=== PATIENT | male | born 1995 | race Two or more races ===

== ENCOUNTER 2025-01-16 14:33 | Emergency (ER) | payer MEDICAID, OTHER ==
[~2025-01-16] VITALS: Ht 165.1 cm; Wt 132.8 kg
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
--- NOTE | 2025-01-16 16:17 | DVH ---
CLINICAL INDICATION: POST LIFTING PAIN TECHNIQUE: 3 radiographic views of the right shoulder were obtained. Comparison: None FINDINGS/IMPRESSION: No fracture dislocation. If symptoms persist consider MRI to exclude rotator cuff tear.
--- NOTE | 2025-01-16 16:34 | DVH ---
EXAM: CT LS SPINE WO CONTRAST INDICATION: low back pain to left low leg TECHNIQUE: Axial images of the lumbar spine have been obtained along with coronal and sagittal reform atted images. CT scans at this facility use dose modulation, iterative reconstruction, and/or weight based dosing when appropriate to reduce radiation dose to as low as reasonably achievable. COMPARISON: None FINDINGS: ANATOMY: Five lumbar-type vertebral bodies are present. The most inferior well-formed disc space will be referred to as L5-S1 for purposes of numbering in this report. Suspected congenitally short pedic les in the spine VERTEBRAL BODIES: The vertebral bodies are normal in height and alignment. Schmorl's node of the supe rior endplate of T12 SPINAL CANAL: No spinal canal narrowing. INTERVERTEBRAL DISCS: Disc bulge with at least 2 mm posterior extension at L4-5. FACETS: Mild facet arthropathy at L5-S1. Subsequent suspected mild bilateral S1 foraminal narrowing OTHER: None. IMPRESSION: 1. No CT evidence of an acute fracture. 2. Disc bulge with at least 2 mm posterior extension at L4- 3. Mild facet arthropathy at L5-S
[2025-01-16] MEDS: KETOROLAC TROMETH 60MG/2ML VIAL IM ONE (17:04)
[2025-01-16] MEDS ORDERED: TRAM-626 PO (17:09)
[2025-01-16] MEDS ORDERED: GABA-1250 PO (17:09)
[2025-01-16 17:15] VITALS: BP 133/97; PULSE 91; RESP 16; TEMP 98.1; O2SAT 98
== END 2025-01-16 17:17 | disposition home or self-care (01) ==
LOC: ER 14:33
DX: S46.911A Strain of unspecified muscle, fascia and tendon at shoulder and upper arm level, right arm, initial encounter (principal); M51.26 Other intervertebral disc displacement, lumbar region; M54.16 Radiculopathy, lumbar region; Z79.899 Other long term (current) drug therapy; X50.9XXA Other and unspecified overexertion or strenuous movements or postures, initial encounter; Y93.89 Activity, other specified; Y92.89 Other specified places as the place of occurrence of the external cause; Y99.0 Civilian activity done for income or pay
CPT/HCPCS: 72131; 73030; 96372; 99285; J1885

== ENCOUNTER 2025-02-16 09:06 | Emergency (ER) | payer MEDICAID, OTHER ==
[~2025-02-16] VITALS: Ht 165.1 cm; Wt 131.7 kg
[~2025-02-16 09:06] MED LIST: GABA-1250 PO; TRAM-626 PO
[2025-02-16 09:18] VITALS: BP 135/79; PULSE 82; RESP 16; TEMP 98.1; O2SAT 97
[2025-02-16] MEDS ORDERED: METH-1181 PO (10:27)
[2025-02-16] MEDS ORDERED: NAPR-746 PO (10:27)
--- NOTE | 2025-02-16 10:27 | ED.PDOC ---
Back pain HPI HPI Comments 29-year-old male presents to the ER with a prior MHx of herniated disc, bulging desk in the chief complaint of back pain. Patient notes that the reason from having lower back pain is due from a forklift incident six years ago. Pain rated as moderate OTC medications help temporarily Denies history of chronic steroid use or history of osteoporosis Denies history of cancer Denies fevers chills night sweats nausea vomiting unintentional weight loss Denies abdominal tearing pain Denies syncope Denies urinary changes or urinary incontinence Denies numbness tingling of the groin her inner thigh Denies previous back procedures or surgeries Chief Complaint: Back Pain Time Seen by MD: 09:15 Reviewed Notes: Nurses Notes, Medications, Allergies Allergies: Coded Allergies: NO KNOWN ALLERGIES (Unverified , 01/16/25) Home Meds Active Scripts Methocarbamol (Methocarbamol) 500 Mg Tab, 500 MG PO Q8HP PRN for 10 Days, #30 TAB 0 Refills Prov:GABE HERNANDEZ NP 02/16/25 Naproxen (Naproxen) 500 Mg Tab, 500 MG PO BIDPC for 10 Days, #20 TAB 0 Refills Prov:GABE HERNANDEZ NP 02/16/25 Tramadol HCl (Tramadol HCl) 50 Mg Tab, 50 MG PO TID, #20 TAB Prov:KOKI LUJAN 01/16/25 Gabapentin (Gabapentin) 300 Mg Cap, 300 MG PO BID, #30 CAP Prov:KOKI LUJAN 01/16/25 Information Source: Patient Mode of Arrival: Ambulatory Timing: Came on: Gradually Duration: Since onset Severity: Moderate Prehospital treatment: None Quality: Aching Onset: Spontaneous Circumstance: Work Related History of: Chronic Back Pain Associated signs and symptoms: None Past Medical History Past Medical History (Other): Chronic back pain due from having herniated disc and bulging disc Surgical History: Denies all surgeries Family History Family History: Reviewed,noncontributory to illness, Unknown Social History Smoker: Non-Smoker Alcohol: Denies ETOH Use Drugs: Denies Drug Use Lives In: Home Constitutional: denies: chills, diaphoresis, fatigue, fever, malaise, sweats, weakness, others EENTM: denies: blurred vision, double vision, ear bleeding, ear discharge, ear drainage, ear pain, ear ringing, eye pain, eye redness, hearing loss, mouth pain, mouth swelling, nasal discharge, nose bleeding, nose congestion, nose pain, photophobia, tearing, throat pain, throat swelling, voice changes, others Respiratory: denies: cough, hemoptysis, orthopnea, SOB at rest, shortness of breath, SOB with excertion, stridor, wheezing, others Cardiovascular: denies: chest pain, dizzy spells, diaphoresis, Dyspnea on exertion, edema, irregular heart beat, left arm pain, lightheadedness, palpitations, PND, syncope, others Gastrointestinal: denies: abdomen distended, abdominal pain, blood streaked bowels, constipated, diarrhea, dysphagia, difficulty swallowing, hematemesis, melena, nausea, poor appetite, poor fluid intake, rectal bleeding, rectal pain, vomiting, others Genitourinary: denies: burning, dysuria, flank pain, frequency, hematuria, incontinence, penile discharge, penile sore, pain, testicle pain, testicle swelling, urgency, others Neurological: reports: numbness; denies: dizziness, fainting, headache, left sided numbness, left sided weakness, paresthesia, pre-existing deficit, right sided numbness, right sided weakness, seizure, speech problems, tingling, tremors, weakness, others Musculoskeletal: reports: back pain; denies: gout, joint pain, joint swelling, muscle pain, muscle stiffness, neck pain, others Integumetry: denies: bruises, change in color, change in hair/nails, dryness, laceration, lesions, lumps, rash, wounds, others Allergic/Immunocompromised: denies: Difficulty Healing, Frequent Infections, Hives, Itching, others Hematologic/Lymphatic: denies: anemia, blood clots, easy bleeding, easy bruising, swollen glands, others Endocrine: denies: excessive hunger, excessive sweating, excessive thirst, excessive urination, flushing, intolerance to cold, intolerance to heat, une xplained weight gain, unexplained weight loss, others Psychiatric: denies: anxiety, bipolar disorder, depression, hopeless, panic disorder, schizophrenia, sleepless, suicidal, others All Other Systems: Reviewed and Negative Physical Exam General Appearance: No Apparent Distress, Normal HEENT: Normal ENT Inspection, Pharynx Normal, TMs Normal Neck: Full Range of Motion, Non-Tender, Normal, Normal Inspection Respiratory: Chest Non-Tender, Lungs Clear, No Accessory Muscle Use, No Respiratory Distress, Normal Breath Sounds Cardiovascular: No Edema, No JVD, No Murmur, No Gallop, Normal Peripheral Pul ses, Regular Rate/Rhythm Breast Exam: Deferred Gastrointestinal: No Organomegaly, Non Tender, No Pulsatile Mass, Normal Bowel Sounds, Soft Genitalia: Deferred Pelvic: Deferred Rectal: Deferred Extremities: No calf tenderness, Normal capillary refill, Normal inspection, Normal range of motion, Non-tender, No pedal edema Musculoskeletal : Apperance: Normal Neurologic: Alert, patrol officer II-XII nml as Tested, No Motor Deficits, Normal Affect, Normal Mood, No Sensory Deficits Cerebellar Function: Normal Reflexes: Normal Skin: Dry, Normal Color, Warm Lymphatic: No Adenopathy Was a procedure done? Was a procedure done?: No Back Pain Differential Dx Differential Diagnosis: Other X-Ray, Labs, Meds, VS Vital Signs Date Time Temp Pulse Resp B/P (MAP) Pulse Ox O2 Delivery O2 Flow Rate FiO2 02/16/25 09:18 98.1 82 16 135/79 97 98.1 X-Ray, Labs, Meds, VS Comment 29-year-old male presents to the ER with a prior MHx of herniated disc, bulging desk in the chief complaint of back pain. Patient arrives alert and oriented, ABC's intact, afebrile, vital signs stable, saturating well in room air I considered cauda equina, spinal cord compression, vertebral malignancy/mets, acute spinal fracture, vertebral osteomyelitis, epidural abscess, infected or obstructed kidney stone, however this is less likely as the patient does not present with lower back pain red flags symptoms such as bowel or bladder dysfunction, saddle anesthesia, paresthesia, and without any history of malignancy or recent back trauma or spinal interventions. Therefore further imaging studies such as a lumbar MRI were not indicated on today's visit. Prese ntation most consistent with nonemergent musculoskeletal etiology versus nonemergent disc herniation. ED workup: Defer imaging and lab work for outpatient follow up at this time Disposition: Discharge. Strict return precautions discussed with the patient with full understanding. Supportive care advised (rest, ice, heat, NSAIDs, stretching exercises) Massage muscles with cold pack or ice for 20 minutes 4 times per day. Usually most useful if there is swelling during the first 48 hours Heating pad on the most painful area for 20 minutes to relieve muscle spasm Sleep and the most comfortable sleeping position (usually on the side with knees bent) Light stretching, no strenuous activity, avoid frequent bending, avoid carrying heavy objects Discussed possible benefits of yoga and acupuncture Return precautions discussed including Inability to walk/bear weight Paresthesia/weakness/leg pain Fecal/urinary incontinence Any worsening symptoms Additional MDM Review of External, Non-ED records: External records reviewed. Discussion with independent historian (EMS, family) history obtained from the patient/parents (if applicable) at bedside Chronic conditions affecting care: None Social determinants of health affecting care: None Consideration of admission (observation or admission): I considered escalation of care to admission for this patient, however given the reassuring workup, the patient is safe for outpatient management. Discussion with the Radiology: No Tests considered but not performed: Prescription medication considered but not given: 12 lead EKG interpretation: Time of 1ST Reevaluation: 09:45 Reevaluation 1ST: Improved Patient Education/Counseling: Diagnosis, Treatment, Prognosis Family Education/Counseling: Diagnosis, Treatment, Prognosis SEPSIS Sepsis Screen Date sepsis recognized/suspect: Feb 16, 2025 Time Sepsis recognized/suspect: 917 Recent Procedure: No On Antibiotic Therapy: No Respiratory Rate >20: No Heart Rate >90: No Temp<36 C (96.8 F) or >38.3 C: No SBP <90 or MAP <65 mmHG: No New Acute Mental Status Change: No Is the patient on CPAP, BIPAP,: No Vital Signs Date Time Temp Pulse Resp B/P (MAP) Pulse Ox O2 Delivery O2 Flow Rate FiO2 02/16/25 09:18 98.1 82 16 135/79 97 98.1 Departure 1 Departure Time of Disposition: : Impression: Primary Impression: Herniated disc Qualified Codes: M51.26 - Other intervertebral disc displacement, lumbar region Disposition: HOME / SELF CARE / HOMELESS Condition: Stable e-Prescriptions Methocarbamol (Methocarbamol) 500 Mg Tab 500 MG PO Q8HP PRN for 10 Days, #30 TAB 0 Refills Prov: GABE HERNANDEZ STUDIO PRODUCER 02/16/25 Naproxen (Naproxen) 500 Mg Tab 500 MG PO BIDPC for 10 Days, #20 TAB 0 Refills Prov: GABE HERNANDEZ STUDIO PRODUCER 02/16/25 Critical Care Note Critical Care Time?: No Stability Stability form required: No Heart Score Heart Score: Heart Score Response (Comments) Value History N/A 0 EKG N/A 0 Age N/A 0 Risk Factors N/A 0 Troponin N/A 0 Total 0 I personally scribed for GABE HERNANDEZ NP ([email or web address]) on 02/16/25 at 10:36. Electronically submitted by Willie Obrien ([email or web address]). I personally scribed for GABE HERNANDEZ NP ([email or web address]) on 02/16/25 at 10:36. Electronically submitted by Willie Obrien ([email or web address]). GABE HERNANDEZ NP Feb 16, 2025 10:27
== END 2025-02-16 10:49 | disposition home or self-care (01) ==
LOC: ER 09:06
DX: M51.26 Other intervertebral disc displacement, lumbar region (principal); Z79.899 Other long term (current) drug therapy